=== PATIENT | male | born 1990 | race Caucasian/White ===

== ENCOUNTER 2017-03-06 08:03 | Emergency (ER) | payer BC ==
--- NOTE | 2017-03-06 08:52 | ERNOTE ---
Abdominal HPI - General Chief Complaint: Abdominal Pain Time Seen by Provider: 03/06/17 08:36 Source: patient Exam Limitations: no limitations - Immun/Allergies/Home Medications Immunizatons: IMMUNIZATION HX Immunizations Up to Date Yes History of Influenza Vaccine No Allergies/Adverse Reactions: Allergies No Known Allergies Allergy (Unverified 03/06/17 08:15) Home Medications: HOME MEDICATIONS NK [No Home Medication] 03/06/17 [Last Taken Unknown] - History of Present Illness Narrative: PAtient started to have abdominal pain five days ago, cramping, periumbilical, the pain was intermittent. He had a history of constipation as a child, but no problems for years. When he started to have symptoms he increased his fiber intake and eventually took a laxative. After that he had diarrhea and the pain pretty much resolved for a day then restarted at 04:00. He denies any nausea and vomiting Date (Duration): 03/01/17 Timing: intermittent Quality: moderate, aching, cramping Activities at Onset: none Modifying Factors - (Improves): Absent: breathing, coughing, defecating, rest, lying down, exercise Modifying Factors - (Worsens): Absent: breathing, coughing, defecating Review of Systems - Review of Systems Constitutional: Absent: recent illness, fever, chills ENT: Absent: nasal drainage, sore throat Respiratory: Absent: shortness of breath Cardiology: Absent: chest pain Gastrointestinal/Abdominal: Present: See HPI. Absent: nausea, vomiting Musculoskeletal: Present: no symptoms reported Skin: Present: no symptoms reported Neurological: Present: no symptoms reported - Patient's Past Medical History Patient History - Medical: No pertinent hx Patient History - Cardiac/Respiratory: Asthma Patient History - Cancer: No Hx of Cancer Patient History - Other: None - Social History Living Situations: home Psych History: No pertinent hx Smoking Status: Never smoker Alcohol Use: none Drug Use: none - Immunizations Immunizations Up to Date: Yes History of Influenza Vaccine: No Physical Exam - Physical Exam General Appearance: Present: wd/wn, alert, no apparent distress Ears, Nose, Throat: Present: normal pharynx Respiratory: Present: no respiratory distress, normal breath sounds, no accessory muscle use, lungs clear Cardiovascular/Chest: Present: regular rate, rhythm, no murmur Gastrointestinal/Abdominal: Present: normal bowel sounds, nondistended, soft, tenderness - periumbilical Neurological Exam: Present: alert, oriented, normal mood/affect Skin Exam: Present: normal color, warm/dry ED Progress - Results and Orders Patient's Lab Results:: I have reviewed the patient's lab results. - Vital Signs Patient's Vital Signs:: I have reviewed the patient's vital signs. Vital Signs: Vital Signs 03/06/17 08:10 Temperature 36.6 C Pulse Rate 71 Respiratory 16 Rate Blood Pressure 155/88 O2 Sat by Pulse 100 Oximetry - X-Ray X-Ray #1 X-Ray: abdomen - constipation, no acute findings Interpretation: Reviewed by me - Progress/Reassessment Chief Complaint: Abdominal Pain Progress Note-Subjective: 03/06/17 10:10 explained results and diagnosis of constipation Departure - Departure Clinical Impression: Constipation Qualifiers: Constipation type: unspecified constipation type Qualified Code(s): K59.00 - Constipation, unspecified Abdominal pain Qualifiers: Abdominal location: periumbilical Qualified Code(s): R10.33 - Periumbilical pain Disposition: Home self-care Condition: Good Instructions: Constipation, Adult, [id number], Abdominal Pain, Adult, Easy-to -Read Additional Instructions: use over the counter magnesium citrate to get your bowels moving increase you fiber intake or start taking miralax if your pain does not resolve or you start vomiting or the pain moves to the right loser side return to the ER Referrals: Freeman Moreno MD [Staff Physician] -
[2017-03-06 08:59] LABS: Hematocrit 44.5 % (42.0-52.0); Hemoglobin 15.4 gm/dL (13.5-18.0); Mean Cell Volume 82.9 fl (78-100); Mean Corpuscular Hemoglobin 28.7 pg (27-31); Mean Corpuscular Hgb Conc 34.6 g/dl (32-36); Mean Platelet Volume 10.2 fl (6.0-9.5); Neutrophil # 6.4 K/mm3 (1.3-6.0); Platelet Count 305 K/mm3 (150-450); Red Blood Count 5.37 M/mm3 (4.7-6.0); Red Cell Distribution Width 11.7 % (11.5-14.0); White Blood Count 8.7 K/mm3 (4.0-10.5)
--- OUTSIDE RECORDS SUMMARY | 2017-03-06 09:06 | XMS REPORT | Continuity of Care Document ---
:1990 Author Organization [facility] [place] [address] Care Team Providers Name Role Phone Provider, None Per Patient Primary Care Provider Unavailable Source Comments This disclosure is being made pursuant to the [place] program and maynot contain all information available regarding this patient.[facility] Active Allergies and Adverse Reactions No Known Allergies Current Medications Be aware that medications may not be up to date as of this document. Alwaysverify current medications with the patient. Not on file Active Problems Not on file Social History Tobacco Use Types Packs/Day Years Used Date Never Smoker Last Filed Vital Signs Vital Sign Reading Time Taken Blood Pressure 128/82 08/21/2014 11:18 AM CDT Pulse 60 08/21/2014 11:18 AM CDT Temperature - - Respiratory Rate 16 08/21/2014 11:18 AM CDT Height 1.829 m (6') 08/21/2014 11:18 AM CDT Weight 104.872 kg (231 lb 3.2 oz) 08/21/2014 11:18 AM CDT Body Mass Index 31.35 08/21/2014 11:18 AM CDT Oxygen Saturation - - Plan of Care Health Maintenance Due Date Last Done Comments HPV Vaccine ([id number]) (1 of 3 - Male 3 Dose Series) 2001 Retired-Pertussis Vaccine Adult 2009 Retired-Tetanus Vaccine Adult 2009 Retired-INFLUENZA VACCINE 07/31/2015 Results from Last 3 Months Not on file
[2017-03-06 09:17] LABS: Albumin * 4.8 gm/dl (3.4-5.0); Anion Gap 13.2 mmol/L (6.8-13.8); BUN/Creatinine Ratio 14.4 (9.0-21.6); Bilirubin, Total 0.5 mg/dL (0.0-1.1); Ca. Corrected For Albumin 8.5 mg/dL (8.4-10.2); Calcium * 9.5 mg/dL (7.9-10.9); Carbon Dioxide 27.6 mmol/L (24-32.6); Potassium 4.8 mmol/L (3.4-4.6); Total Protein 8.8 gm/dL (6.2-8.2)
[2017-03-06 09:21] VITALS: BP 145/72
[2017-03-06 09:54] LABS: Urine Bilirubin Negative (NEGATIVE); Urine Blood Negative /ul (NEGATIVE); Urine Ketone Negative (NEGATIVE); Urine Nitrite Negative (NEGATIVE); Urine Protein Negative (NEGATIVE); Urine Specific Gravity <=1.005 SP.GR. (1.005-1.030); Urine Urobilinogen Normal (NORMAL)
[2017-03-06 10:01] LABS: Urine Appearance Clear; Urine Color Colorless
[2017-03-06 10:02] LABS: Urine Bacteria None Seen; Urine RBC None Seen /hpf (0-5); Urine WBC None Seen /hpf (0-5)
== END 2017-03-06 10:20 | disposition home or self-care (01) ==
LOC: ER 08:03
DX: K59.00 Constipation, unspecified (principal); R10.33 Periumbilical pain